=== PATIENT | male | born 1990 | race American Indian/Alaskan Native ===

== ENCOUNTER 2019-04-12 18:51 | Emergency (ER) | payer SELFPAY ==
--- NOTE | 2019-04-12 19:30 | Event Note ---
ED Screening Note ED Screening Note: states that he has lesions on the shaft of the penis began a week ago no pain or swelling in the testicles no fever no n/v/d no abd pain no dysuria no penile discharge PMHx asthma, arthritis no allergies to meds +sexually active, occasionally uses protection This initial assessment/diagnostic orders/clinical plan/treatment(s) is/are subject to change based on patients health status, clinical progression and re- assessment by fellow clinical providers in the ED. Further treatment and workup at subsequent clinical providers discretion. Patient/guardian urged not to elope from the ED as their condition may be serious if not clinically assessed and managed. Initial orders include: ACC eval genital exam
[2019-04-12 19:33] VITALS: BP 134/83
--- NOTE | 2019-04-12 22:40 | Emergency Department Report ---
Chief Complaint: Urogenital-Male Stated Complaint: PENIS BURNING Time Seen by Provider: 04/12/19 19:28 - HPI History of Present Illness: 29-year-old -[place] male with multiple complaining of having a painless papule on the top of his penis about 1 month ago that resolved after 2 to 3 days. He states 2 to 3 weeks following that the lesion had returned to his penis and then and then had resolved again. Today he presents emerge department stating he has no penile rash no penile pain or penile discharge no testicular testicular pain but wanted to know the origin of the lesion that which he had which is now resolved he reports no fever, chills, sweats no hematuria or dysuria - ROS Review of Systems: As per HPI - Exam Vital Signs: Vital Signs 04/12/19 19:32 Temperature 98 F Pulse Rate 98 H Respiratory 18 Rate Blood Pressure 134/83 O2 Sat by Pulse 100 Oximetry Physical Exam: Vital signs stable General: Patient is well nourished, well developed, awake and alert, resting comfortably in no acute distress Head: Normocephalic and atraumatic Eyes: Normal inspection, extraocular muscles intact, no conjunctival pallor Ear, nose, throat: Normal external exam Neck: Normal range of motion Respiratory: Patient is in no respiratory distress, lungs CTAB Cardiovascular: Patient is not tachycardic, RRR without murmur appreciated GI: Abd SNT with no guarding or rebound; +BS normoactive x 4, no tympanny to percussion Normal male genital examination normal penile examination. no lymphadenopathy Back: Normal inspection of the back with good strength and range of motion throughout all ext Extremities: pulses intact with good cap refills, no LE pitting edema or calf tenderness Neuro: The patient is alert and oriented to person, place, and time, appropriately conversive, with 5/5 bilat UE/LE strength, no gross motor or sensory defects noted. Coordination appears to be adequate. Skin: Warm, dry, and intact MSE screening note: Focused history and physical exam performed. Due to findings the following was ordered: ED Disposition for MSE Clinical Impression: Possible exposure to STD Disposition: MED SCREENING EXAM-LEFT Is pt being admited?: No Does the pt Need Aspirin: No Condition: Stable Instructions: Safe Sex (ED) Referrals: [facility] [Outside] - 3-5 Days
== END 2019-04-12 23:24 | disposition left against medical advice (07) ==
LOC: ED 18:51
DX: R23.8 Other skin changes (principal); J45.909 Unspecified asthma, uncomplicated; M19.90 Unspecified osteoarthritis, unspecified site
CPT/HCPCS: 99282